=== PATIENT | male | born 1960 | race Caucasian/White ===

== ENCOUNTER 2020-01-17 21:46 | Emergency (ER) | payer BC ==
[2020-01-17 21:58] VITALS: BP 93/67; PULSE 60
[2020-01-17] MEDS ORDERED: Sodium Chloride 0.9% 1,000 ML IV ONE (22:27)
--- NOTE | 2020-01-17 22:35 | EDM.PDOC ---
ED HPI GENERAL MEDICAL PROBLEM - General Chief Complaint: Syncope Stated Complaint: LOW BLOOD PRESSURE/VOMITED Time Seen by Provider: 01/17/20 22:00 Source of Information: Reports: Patient History Limitations: Reports: No Limitations - History of Present Illness INITIAL COMMENTS - FREE TEXT/NARRATIVE: Mr. Lockett is a very pleasant 59-year-old gentleman who now presents to the ED after suffering 2 syncopal episodes at home. He states that he was sitting in an outside chair, drinking wine, when he developed lightheadedness, around 20:30. The next thing he knew, his was shaking him awake. He immediately felt better, but within a few minutes he felt lightheaded again, and again found his shaking him awake. He got up, went inside and laid down on the couch, but still found "lousy", therefore his family called EMS. They evaluated him, finding his blood pressure to be low, however, the patient refused to come to the ED. When he continued to feel poorly, however, his family brought him. When I spoke to the patient's and daughter in the waiting room, they stated that the patient was sitting outside in a chair, and that he then became unresponsive and limp. He did not fall out of his chair. Both episodes lasted about a minute or so, with the patient gurgling during the second episode. The patient may also have tensed up during the second episode. Patient tells me that he did not bite his tongue, and there was no loss of bowel or bladder continence. The patient states that he had a similar episode about 1 year ago. He states that he underwent a medical evaluation 2 or 3 days later, and was found to have elevated blood pressure. The patient takes olmesartan/HCTZ, 1 tablet each morning for hypertension, and states that it is possible that he accidentally took a second dose today. Here in the ED, the patient's initial BP is decreased at 93/67, with a HR of 60 bpm. His oxygen saturation is 97% on room air. Other than tonight's events, the patient denies having a recent fever, chills, sore throat, ear pain, nasal or sinus congestion, cough, dyspnea, chest pain, palpitations, nausea, vomiting, constipation, diarrhea, abdominal pain, urinary symptoms, recent weight gain or weight loss, recent bloody bowel movements or black bowel movements, recent joint aches, headaches, or rashes. The patient's PCP is Dr. Saul Fontaine. - Related Data Allergies Allergy/AdvReac Type Severity Reaction Status Date / Time No Known Allergies Allergy Verified 01/17/20 21:58 Home Meds: Home Meds Omeprazole [Prilosec] 40 mg PO DAILY 06/09/14 [History] Olmesartan/Hydrochlorothiazide [Olmesartan-Hctz 40-25 mg Tab] 1 tab PO DAILY 01/17/20 [History] Past Medical History Cardiovascular History: Reports: Hypertension Gastrointestinal History: Reports: GERD Neurological History: Reports: Head Trauma (as a child) - Past Surgical History Head Surgeries/Procedures: Reports: Other (See Below) (Cranial repair as a child) Musculoskeletal Surgical History: Reports: Arthroscopic Knee (right), Other (See Below) (Left knee open repair) Social & Family History - Family History Family Medical History: Noncontributory - Tobacco Use Smoking Status *Q: Current Every Day Smoker Years of Tobacco use: 47 Packs/Tins Daily: 1 - Caffeine Use Caffeine Use: Reports: Coffee - Alcohol Use Alcohol Use History: Yes Days Per Week of Alcohol Use: 7 Number of Drinks Per Day: 4 Total Drinks Per Week: 28 Alcohol Use Frequency: Daily - Recreational Drug Use Recreational Drug Use: Yes Drug Use in Last 12 Months: Yes Recreational Drug Type: Reports: Marijuana/Hashish (smokes 2 x per week) - Living Situation & Occupation Living situation: Reports: , with Spouse, with Family ([id number] + granddaughter) 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 - Physical Exam Exam: See Below Exam Limited By: No Limitations General Appearance: Alert, WD/WN, Mild Distress (complains of feeling lightheaded) Eye Exam: Bilateral Eye: EOMI, Normal Inspection, PERRL Ears: Normal External Exam, Normal Canal, Hearing Grossly Normal, Normal TMs Nose: Normal Inspection, Normal Mucosa, No Blood Throat/Mouth: Normal Inspection, Normal Lips, Normal Teeth, Normal Gums, Normal Oropharynx, Normal Voice, No Airway Compromise Head Exam: Atraumatic, Normocephalic Neck: Normal Inspection, Supple, Non-Tender, Full Range of Motion. No: Lymphadenopathy (L), Lymphadenopathy (R) Respiratory/Chest: No Respiratory Distress, Lungs Clear, Normal Breath Sounds, No Accessory Muscle Use Cardiovascular: Normal Peripheral Pulses, Regular Rate, Rhythm, No Edema, No Gallop, No JVD, No Murmur, No Rub GI/Abdominal: Normal Bowel Sounds, Soft, Non-Tender, No Organomegaly, No Distention, No Abnormal Bruit, No Mass (Male) Exam: Deferred Rectal (Males) Exam: Deferred Neuro Exam (Abbreviated): Alert, Oriented, CN II-XII Intact, Normal Cognition, No Motor/Sensory Deficits Back Exam: Normal Inspection, Full Range of Motion, NT Extremities: Normal Inspection, Normal Range of Motion, No Pedal Edema, Normal Capillary Refill Psychiatric: Normal Affect Skin Exam: Warm, Dry, Intact, Normal Color, No Rash EKG INTERPRETATION EKG Date: 01/17/20 Time: 22:33 Rhythm: NSR Rate (Beats/Min): 61 Fingal: Normal P-Wave: Present QRS: Normal ST-T: Normal QT: Normal Comparison: NA - No Prior EKG Course - Vital Signs Last Recorded V/S: Last Vital Signs Temp Pulse 60 01/17/20 21:53 Resp 15 01/17/20 21:53 BP 93/67 01/17/20 21:53 Pulse Ox 92 L 01/17/20 21:53 Orthostatic Blood Pressure [ 106/61 Standing] Orthostatic Blood Pressure [ 107/71 Sitting] Orthostatic Blood Pressure [ 88/57 Supine] - Orders/Labs/Meds Orders: Active Orders 24 hr Category Date Time Status Chest 1V Frontal [CR] Stat Exams 01/17/20 22:20 Taken Head wo Cont [CT] Stat Exams 01/17/20 22:26 Taken CULTURE BLOOD [BC] Stat Lab 01/17/20 22:47 Received CULTURE BLOOD [BC] Stat Lab 01/17/20 22:57 Received Blood Culture x2 Reflex Set [OM.PC] Stat Oth 01/17/20 22:25 Ordered Labs: Laboratory Tests 01/17/20 01/17/20 01/17/20 Range/Units 22:00 22:00 22:00 WBC 7.66 (4.23-9.07) K/mm3 RBC 4.41 L (4.63-6.08) M/mm3 Hgb 14.4 D (13.7-17.5) gm/dl Hct 41.8 (40.1-51.0) % MCV 94.8 H D (79.0-92.2) fl MCH 32.7 H (25.7-32.2) pg MCHC 34.4 (32.2-35.5) g/dl RDW Std Deviation 43.6 (35.1-43.9) fL Plt Count 390 H (163-337) K/mm3 MPV 9.1 L (9.4-12.3) fl Neutrophils % (Manual) 51 (40-60) % Band Neutrophils % 0 (0-10) % Lymphocytes % (Manual) 40 (20-40) % Atypical Lymphs % 0 % Monocytes % (Manual) 6 (2-10) % Eosinophils % (Manual) 2 (0.8-7.0) % Basophils % (Manual) 1 (0.2-1.2) Platelet Estimate Adequate Plt Morphology Comment See note RBC Morph Comment Normal D-Dimer, Quantitative 0.30 (0.19-0.50) mg/L Sodium 135 L (136-145) mEq/L Potassium 3.7 (3.5-5.1) mEq/L Chloride 99 (98-107) mEq/L Carbon Dioxide 25 (21-32) mEq/L Anion Gap 14.7 (5-15) BUN 23 H (7-18) mg/dL Creatinine 1.9 H (0.7-1.3) mg/dL Est Cr Clr Drug Dosing 42.16 mL/min Estimated GFR (MDRD) 36 (>60) mL/min BUN/Creatinine Ratio 12.1 L (14-18) Glucose 114 (80-115) mg/dL Lactic Acid (0.4-2.0) mmol/L Calcium 9.2 (8.5-10.1) mg/dL Phosphorus 3.1 (2.6-4.7) mg/dL Magnesium 1.9 (1.8-2.4) mg/dl Total Bilirubin 0.5 (0.2-1.0) mg/dL AST 33 (15-37) U/L ALT 38 (16-63) U/L Alkaline Phosphatase 72 (46-116) U/L Creatine Kinase 150 (39-308) U/L Troponin I < 0.017 (0.00-0.056) ng/mL Total Protein 7.6 (6.4-8.2) g/dl Albumin 3.9 (3.4-5.0) g/dl Globulin 3.7 gm/dL Albumin/Globulin Ratio 1.1 (1-2) Urine Color (Yellow) Urine Appearance (Clear) Urine pH (5.0-8.0) Ur Specific Andrews (1.005-1.030) Urine Protein (Negative) Urine Glucose (UA) (Negative) Urine Ketones (Negative) Urine Occult Blood (Negative) Urine Nitrite (Negative) Urine Bilirubin (Negative) Urine Urobilinogen (0.2-1.0) Ur Leukocyte Esterase (Negative) U Hyaline Cast (Auto) (0-5) /lpf Urine RBC (0-5) /hpf Urine WBC (0-5) /hpf Ur Squamous Epith Cells (0-5) /hpf Urine Bacteria (FEW) /hpf Urine Mucus (FEW) /hpf Ethyl Alcohol 0.07 (0.00) gm% COVID-19 ([facility]) (NEGATIVE) 01/17/20 01/17/20 01/18/20 Range/Units 22:41 22:47 00:40 WBC (4.23-9.07) K/mm3 RBC (4.63-6.08) M/mm3 Hgb (13.7-17.5) gm/dl Hct (40.1-51.0) % MCV (79.0-92.2) fl MCH (25.7-32.2) pg MCHC (32.2-35.5) g/dl RDW Std Deviation (35.1-43.9) fL Plt Count (163-337) K/mm3 MPV (9.4-12.3) fl Neutrophils % (Manual) (40-60) % Band Neutrophils % (0-10) % Lymphocytes % (Manual) (20-40) % Atypical Lymphs % % Monocytes % (Manual) (2-10) % Eosinophils % (Manual) (0.8-7.0) % Basophils % (Manual) (0.2-1.2) Platelet Estimate Plt Morphology Comment RBC Morph Comment D-Dimer, Quantitative (0.19-0.50) mg/L Sodium (136-145) mEq/L Potassium (3.5-5.1) mEq/L Chloride (98-107) mEq/L Carbon Dioxide (21-32) mEq/L Anion Gap (5-15) BUN (7-18) mg/dL Creatinine (0.7-1.3) mg/dL Est Cr Clr Drug Dosing mL/min Estimated GFR (MDRD) (>60) mL/min BUN/Creatinine Ratio (14-18) Glucose (80-115) mg/dL Lactic Acid 1.8 (0.4-2.0) mmol/L Calcium (8.5-10.1) mg/dL Phosphorus (2.6-4.7) mg/dL Magnesium (1.8-2.4) mg/dl Total Bilirubin (0.2-1.0) mg/dL AST (15-37) U/L ALT (16-63) U/L Alkaline Phosphatase (46-116) U/L Creatine Kinase (39-308) U/L Troponin I (0.00-0.056) ng/mL Total Protein (6.4-8.2) g/dl Albumin (3.4-5.0) g/dl Globulin gm/dL Albumin/Globulin Ratio (1-2) Urine Color Yellow (Yellow) Urine Appearance Clear (Clear) Urine pH 7.0 (5.0-8.0) Ur Specific Andrews 1.025 (1.005-1.030) Urine Protein Negative (Negative) Urine Glucose (UA) Negative (Negative) Urine Ketones Negative (Negative) Urine Occult Blood Negative (Negative) Urine Nitrite Negative (Negative) Urine Bilirubin Negative (Negative) Urine Urobilinogen 0.2 (0.2-1.0) Ur Leukocyte Esterase Negative (Negative) U Hyaline Cast (Auto) 10-20 H (0-5) /lpf Urine RBC Not seen (0-5) /hpf Urine WBC 0-5 (0-5) /hpf Ur Squamous Epith Cells Not seen (0-5) /hpf Urine Bacteria Rare (FEW) /hpf Urine Mucus Not seen (FEW) /hpf Ethyl Alcohol (0.00) gm% COVID-19 (CIRO) Negative (NEGATIVE) Meds: Medications Discontinued Medications Generic Name Dose Route Start Last Admin Trade Name Freq PRN Reason Stop Dose Admin Sodium Chloride 1,000 mls @ 999 mls/hr 01/17/20 22:27 01/17/20 22:33 Normal Saline IV 01/17/20 23:27 999 mls/hr ONETIME ONE Administration - Re-Assessments/Exams Free Text/Narrative Re-Assessment/Exam: 01/17/20 22:35 As above, the patient suffered 2 syncopal episodes tonight, each lasting maybe 1 to 2 minutes, with some generalized body stiffness during the second episode, raising the concern of a seizure, however, the patient remains somewhat hypotensive and lightheaded here in the ED, yet he is not tachycardic. Even if he had taken an extra dose of his antihypertensive medication this morning, that medicine would not prevent him from having an appropriate tachycardic response to hypotension, and if the patient had suffered a seizure earlier tonight, that would not explain his hypotension or relative bradycardia. I have ordered an extensive work-up, including orthostatics, blood work, 2 sets of blood cultures, a urinalysis, a portable chest x-ray, a CT of the head without contrast, an ECG, and a swab for the SARS-CoV-2 virus. In the meantime, the patient will be given a 1 L bolus of IV fluid. 01/17/20 22:45 Surprisingly, the patient is not orthostatic. 01/17/20 23:25 CT of the head without contrast is read by [facility] as: No acute abnormality. Encephalomalacia of the anterior right temporal lobe. 01/17/20 23:58 Two-view chest radiograph appears to be grossly normal. The cardiac silhouette is within normal limits. No pulmonary vascular congestion. No pleural effu sions. No focal infiltrate. No pneumothorax. Formal read per the Radiologist pending. The patient's CBC is remarkable for platelets mildly elevated at 399,000, with the remainder of his CBC being unremarkable. His CMP is remarkable for a sodium at the lower limits of normal of 135, and a BUN/Cr elevated at 23/1.9, with the remainder of his CMP being unremarkable. His magnesium level is within normal limits at 1.9. His phosphorus level is within normal limits at 3.1. His lactic acid level is within normal limits at 1.8. His CPK is within normal limits at 150. His troponin is undetectably low. His D-dimer is within normal limits at 0.30. His EtOH level is mildly elevated at 0.07. His test for the SARS-CoV-2 virus is negative. The patient has not yet submitted a urine sample. Review of prior labs finds that the patient's BUN/Cr were 18/1.3 on 02/03/2015. 01/18/20 01:10 The patient's urinalysis is unremarkable. At present, the patient's BP is 115/66, with a HR of 63 bpm and an oxygen saturation of 95% on room air. 01/18/20 01:38 Test results discussed with the patient. As above, the patient's renal function is impaired, but we do not know if it is acute or chronic. The remainder of his work-up is unremarkable, and does not explain the cause of his symptoms. There is no indication from elaine's work-up that he suffered a seizure, as his WBC count, blood glucose, and CPK are not elevated, as would be expected with a recent seizure. I offered to keep the patient here to give him additional IV fluid, however, he would prefer to go home and drink Gatorade. I advised that he abstain from alcohol for awhile. Departure - Departure Time of Disposition: 01:39 Disposition: Home, Self-Care 01 Condition: Good Clinical Impression: Syncopal episodes, Renal insufficiency - Discharge Information *PRESCRIPTION DRUG MONITORING PROGRAM REVIEWED*: Not Applicable *COPY OF PRESCRIPTION DRUG MONITORING REPORT IN PATIENT [place]: Not Applicable Instructions: Acute Kidney Injury, Adult, Syncope, [id number] Referrals: Saul Chery MD [Primary Care Provider] - Forms: ED Department Discharge Additional Instructions: You were seen in the emergency room after passing out twice, followed by one episode of vomiting. Work-up in the ER included positional blood pressure checks, blood work, 2 sets of blood cultures, a urinalysis, a chest x-ray, a CT scan of your head, an ECG, and a test for the SARS-CoV-2 virus. Your work-up found your kidney function to be somewhat impaired. Your kidney function was relatively normal in January 2015, but elaine's test does not tell us when your kidney function became impaired. It may have been gradual over the past 5 years, or rapid, over the past few days. The remainder of your work-up was unremarkable. You were not intravascularly dry. You were not dehydrated. You did not suffer a heart attack. You do not have a blood clot in your lungs. You are not anemic. No electrolyte abnormalities were found. You do not have pneumonia. You did not suffer a stroke. Your work-up was not consistent with a recent seizure. Because of your negative work-up, the cause of your passing out is not known. Remaining in the hospital for additional IV fluid was offered, but declined. Going forward, we recommend that you stay adequately hydrated. Gatorade or Powerade are best. We recommend that you follow-up with your PCP, Dr. Saul Fontaine, next week, to check on your kidney function. If any other problems, please do not hesitate to return to the ER. Sepsis Event Note (ED) - Evaluation Sepsis Screening Result: No Definite Risk - Focused Exam Vital Signs: Vital Signs Pulse Resp BP Pulse Ox 01/17/20 21:53 60 15 93/67 92 L - My Orders Last 24 Hours: My Active Orders 01/17/20 22:20 Chest 1V Frontal [CR] Stat 01/17/20 22:25 Blood Culture x2 Reflex Set [OM.PC] Stat 01/17/20 22:26 Head wo Cont [CT] Stat 01/17/20 22:47 CULTURE BLOOD [BC] Stat 01/17/20 22:57 CULTURE BLOOD [BC] Stat - Assessment/Plan Last 24 Hours: My Active Orders 01/17/20 22:20 Chest 1V Frontal [CR] Stat 01/17/20 22:25 Blood Culture x2 Reflex Set [OM.PC] Stat 01/17/20 22:26 Head wo Cont [CT] Stat 01/17/20 22:47 CULTURE BLOOD [BC] Stat 01/17/20 22:57 CULTURE BLOOD [BC] Stat
--- NOTE | 2020-01-18 07:05 | CR ---
Chest: Portable view of the chest was obtained. Comparison: Prior chest x-ray obtained during abdominal series dated 02/03/50. Heart size and mediastinum are within normal limits for portable technique. Lungs are clear with no acute parenchymal change. Bony structures are grossly intact. Impression: 1. Nothing acute is seen on portable chest x-ray. Diagnostic code #1 This report was dictated in MDT
--- NOTE | 2020-01-18 07:07 | CT ---
Head CT Technique: Multiple axial sections through the brain were obtained. Intravenous contrast was not utilized. Comparison: Prior MRI brain of 10/31/08. Findings: Ventricles along with basal cisterns and sulci over the convexities are mildly prominent. Old area of low density is noted within the right temporal lobe compatible with encephalomalacia. No other abnormal parenchymal densities are seen. No evidence of intracranial hemorrhage. No midline shift or mass-effect is appreciated. Bone window settings were reviewed. Visualized mastoid sinuses and visualized paranasal sinuses show nothing acute. No acute calvarial abnormality is appreciated. Impression: 1. Old area of encephalomalacia within the right temporal lobe. 2. Mild generalized atrophy. 3. No acute intracranial abnormality is appreciated. Diagnostic code #2 This report was dictated in MDT I agree with preliminary report from rita, finalized on 01/18/20, 12:21 AM Central Daylight Time
== END 2020-01-18 01:55 | disposition home or self-care (01) ==
LOC: JD.ED 21:46
DX: R55 Syncope and collapse (principal); N28.9 Disorder of kidney and ureter, unspecified; K21.9 Gastro-esophageal reflux disease without esophagitis; I10 Essential (primary) hypertension; F17.210 Nicotine dependence, cigarettes, uncomplicated; Z20.828 Contact with and (suspected) exposure to other viral communicable diseases; Z79.899 Other long term (current) drug therapy
CPT/HCPCS: 36415; 70450; 71045; 80053; 80307; 81001; 82550; 83605; 83735; 84100; 84484; 85007; 85027; 85379; 87040; 87635; 93005; 96360; 99285; J7030; 93010; 99283; U0002

== ENCOUNTER 2020-02-12 12:47 | Emergency (ER) | payer BC ==
[2020-02-12 13:07] VITALS: BP 214/108; PULSE 58
[2020-02-12] MEDS ORDERED: Metoclopramide 10 MG/2 ML SDV IVPUSH ONE (13:27)
[2020-02-12] MEDS ORDERED: Sodium Chloride 0.9% 1,000 ML IV ONE (13:27)
[2020-02-12] MEDS ORDERED: Sodium Chloride 0.9% 10 ML Syringe FLUSH PRN (13:27)
[2020-02-12] MEDS ORDERED: diphenhydrAMINE 50 MG/ML SDV IVPUSH ONE (13:27)
[2020-02-12] MEDS ORDERED: Ketorolac 30 MG/ML SDV IVPUSH ONE (13:27)
--- NOTE | 2020-02-12 13:31 | EDM.PDOC ---
ED HPI GENERAL MEDICAL PROBLEM - General Chief Complaint: Headache Stated Complaint: SEVERE HEADACHE HIGH BLOOD PRESSURE Time Seen by Provider: 02/12/20 13:14 Source of Information: Reports: Patient, RN Notes Reviewed History Limitations: Reports: No Limitations - History of Present Illness INITIAL COMMENTS - FREE TEXT/NARRATIVE: Patient is a 59-year-old male who presents to the ED for evaluation of his headache and high blood pressure. Patient notes that the headache came on very suddenly about 1 hour prior to arrival to the ER, he did take some Advil before coming here. He does note that the pain seems to be subsiding a little bit, but is still pretty intense. He does have a history of brain bleeds around 10 years ago, and after he fell and hit his back of his head. He further notes that he ran out of his blood pressure medications on Tuesday, so he has been out around 3 days. His initial blood pressure at time of triage was 214/108, but while the patient is sitting there on repeat it is 175/107. He was recently seen by his provider, Dr. Fontaine, and had his blood pressure changed from olmesartan/hydrochlorothiazide, just to almost certain. He is not having any chest pain, shortness of breath, nausea/vomiting, sound or light sensitivities, or any blurred vision or double vision. Headache Pain Score (Numeric/FACES): 9 - Related Data Allergies Allergy/AdvReac Type Severity Reaction Status Date / Time No Known Allergies Allergy Verified 02/12/20 13:07 Home Meds: Home Meds Omeprazole [Prilosec] 40 mg PO DAILY 06/09/14 [History] Olmesartan [Benicar] 40 mg PO DAILY 02/12/20 [History] Past Medical History Cardiovascular History: Reports: Hypertension Gastrointestinal History: Reports: GERD Neurological History: Reports: Head Trauma Endocrine/Metabolic History: Reports: Obesity/BMI 30+ - Past Surgical History Neurological Surgical History: Reports: Other (See Below) Other Neurological Surgeries/Procedures: "Popped pt's skull back out" because it was dented in from head trauma as a child. 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 - Physical Exam Exam: See Below Exam Limited By: No Limitations General Appearance: Alert, WD/WN, No Apparent Distress Eye Exam: Bilateral Eye: EOMI, Normal Inspection, PERRL Head Exam: Atraumatic, Normocephalic Neck: Normal Inspection Respiratory/Chest: No Respiratory Distress, Lungs Clear, Normal Breath Sounds, No Accessory Muscle Use, Chest Non-Tender Cardiovascular: Normal Peripheral Pulses, Regular Rate, Rhythm, No Edema, No Murmur Neuro Exam (Abbreviated): Alert, Oriented, Normal Cognition, No Motor/Sensory Deficits Extremities: Normal Inspection, Normal Capillary Refill Psychiatric: Normal Affect, Normal Mood Skin Exam: Warm, Dry, Intact, Normal Color, No Rash EKG INTERPRETATION EKG Date: 02/12/20 Time: 13:12 Rhythm: NSR Rate (Beats/Min): 56 False Pass: Normal P-Wave: Present QRS: Normal ST-T: Normal QT: Normal EKG Interpretation Comments: No obvious ischemia or acute ST changes noted, reviewed by myself and Dr. Kong. Course - Vital Signs Last Recorded V/S: Last Vital Signs Temp 97.3 F 02/12/20 13:03 Pulse 58 L 02/12/20 13:03 Resp 16 02/12/20 13:03 BP 214/108 H 02/12/20 13:03 Pulse Ox 97 02/12/20 13:03 - Orders/Labs/Meds Orders: Active Orders 24 hr Category Date Time Status EKG 12 Lead [EKG Documentation Completion] [RC] ROUTINE Care 02/12/20 13:11 Active Peripheral IV Care [RC] . DIRECTED Care 02/12/20 13:27 Ordered Sodium Chloride 0.9% [Normal Saline] 1,000 ml Med 02/12/20 13:27 Active IV ASDIRECTED Sodium Chloride 0.9% [Saline Flush] Med 02/12/20 13:27 Active 10 ml FLUSH ASDIRECTED PRN Peripheral IV Insertion Adult [OM.PC] Routine Oth 02/12/20 13:27 Ordered Medication Orders Sodium Chloride (Normal Saline) 1,000 mls @ 999 mls/hr IV ASDIRECTED ONE Stop: 02/12/20 14:27 Last Admin: 02/12/20 13:46 Dose: Not Given Documented by: FORTUNATO Sodium Chloride (Saline Flush) 10 ml FLUSH ASDIRECTED PRN PRN Reason: Keep Vein Open Last Admin: 02/12/20 13:45 Dose: 10 ml Documented by: FORTUNATO Meds: Medications Generic Name Dose Route Start Last Admin Trade Name Freq PRN Reason Stop Dose Admin Sodium Chloride 1,000 mls @ 999 mls/hr 02/12/20 13:27 02/12/20 13:46 Normal Saline IV 02/12/20 14:27 Not Given ASDIRECTED ONE Sodium Chloride 10 ml 02/12/20 13:27 02/12/20 13:45 Saline Flush FLUSH 10 ml ASDIRECTED PRN Administration Keep Vein Open Discontinued Medications Generic Name Dose Route Start Last Admin Trade Name Freq PRN Reason Stop Dose Admin Diphenhydramine HCl 25 mg 02/12/20 13:27 02/12/20 13:38 Benadryl IVPUSH 02/12/20 13:28 25 mg ONETIME ONE Administration Ketorolac Tromethamine 30 mg 02/12/20 13:27 02/12/20 13:43 Toradol IVPUSH 02/12/20 13:28 30 mg ONETIME ONE Administration Metoclopramide HCl 10 mg 02/12/20 13:27 02/12/20 13:40 Reglan IVPUSH 02/12/20 13:28 10 mg ONETIME ONE Administration - Re-Assessments/Exams Free Text/Narrative Re-Assessment/Exam: 02/12/20 13:31 Patient presents to the ED for evaluation of his headache. His blood pressure is coming down nicely while being in the ER. We will continue to monitor this. He will get some medications for his headache, and hopefully discharge home with general recommendations. 02/12/20 13:58 She refused IV fluids, but did take the other medications. We will discharge him home at this time, as he is requesting to leave. He will go fill his blood pressure medications and drink some Gatorade at home Departure - Departure Time of Disposition: 13:58 Disposition: Home, Self-Care 01 Condition: Good Clinical Impression: Tension-type headache, Elevated blood pressure reading in office with diagnosis of hypertension - Discharge Information *PRESCRIPTION DRUG MONITORING PROGRAM REVIEWED*: No *COPY OF PRESCRIPTION DRUG MONITORING REPORT IN PATIENT [place]: No Instructions: General Headache Without Cause, [id number], Hypertension, Adult, [id number] Referrals: Saul Chery MD [Primary Care Provider] - Forms: ED Department Discharge Additional Instructions: You were evaluated in the ED for your headache. You were given a combination of medications for management. This did seem to provide you pretty good relief of your symptoms. Recommend that you go home and rest in a quiet, darkened room. Try also to keep well hydrated. 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 Follow-up with Dr. Fontaine as needed. You may take 5 mg Tylenol or 60 mg ibuprofen every 6 hours as needed for further headache relief. Please return to the ED if your symptoms should change or worsen. Sepsis Event Note (ED) - Evaluation Sepsis Screening Result: No Definite Risk - Focused Exam Vital Signs: Vital Signs Temp Pulse Resp BP Pulse Ox 02/12/20 13:03 97.3 F 58 L 16 214/108 H 97 - My Orders Last 24 Hours: My Active Orders 02/12/20 13:11 EKG 12 Lead [EKG Documentation Completion] [RC] ROUTINE 02/12/20 13:27 Peripheral IV Care [RC] . DIRECTED Sodium Chloride 0.9% [Normal Saline] 1,000 ml IV ASDIRECTED Sodium Chloride 0.9% [Saline Flush] 10 ml FLUSH ASDIRECTED PRN Peripheral IV Insertion Adult [OM.PC] Routine - Assessment/Plan Last 24 Hours: My Active Orders 02/12/20 13:11 EKG 12 Lead [EKG Documentation Completion] [RC] ROUTINE 02/12/20 13:27 Peripheral IV Care [RC] . DIRECTED Sodium Chloride 0.9% [Normal Saline] 1,000 ml IV ASDIRECTED Sodium Chloride 0.9% [Saline Flush] 10 ml FLUSH ASDIRECTED PRN Peripheral IV Insertion Adult [OM.PC] Routine
== END 2020-02-12 14:00 | disposition home or self-care (01) ==
LOC: JD.ED 12:47
DX: G44.209 Tension-type headache, unspecified, not intractable (principal); I10 Essential (primary) hypertension; E66.9 Obesity, unspecified; K21.9 Gastro-esophageal reflux disease without esophagitis; F17.210 Nicotine dependence, cigarettes, uncomplicated; Z79.899 Other long term (current) drug therapy; Z68.32 Body mass index [BMI] 32.0-32.9, adult
CPT/HCPCS: 93005; 96374; 96375; 99284; J1200; J1885; J2765; 93010